=== PATIENT | female | born 1975 | race Asian ===

== ENCOUNTER 2017-07-13 01:10 | Inpatient (IN) | payer BC ==
[~2017-07-13] VITALS: Ht 175.3 cm; Wt 107.5 kg
[2017-07-13] MEDS ORDERED: ASPIRIN 81 MG TAB.CHEW ONE (01:23)
--- NOTE | 2017-07-13 01:51 | EKG ---
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
[2017-07-13 01:56] LABS: BASO # 0.1 x10^3/uL (0.0-0.2); BASO % 1 % (0-3); EOS # 0.6 x10^3/uL (0.0-0.7); EOS % 9 % (0-3); HEMATOCRIT 30.9 % (36.0-47.0); HEMOGLOBIN 9.9 g/dL (12.0-15.5); LYMPH % 30 % (24-48); MEAN CORPUSCULAR HEMOGLOBIN 21 pg (25-35); MEAN CORPUSCULAR HGB CONC 32 g/dL (31-37); MEAN CORPUSCULAR VOLUME 66 fL (79-100); MONO # 0.4 x10^3/uL (0.0-1.1); MONO % 6 % (0-9); NEUT # 3.7 x10^3uL (1.8-7.7); NEUT % 54 % (31-73); PLATELET COUNT 322 x10^3/uL (140-400); RED BLOOD COUNT 4.67 x10^6/uL (3.50-5.40); RED CELL DISTRIBUTION WIDTH 18.1 % (11.5-14.5); WHITE BLOOD COUNT 6.8 x10^3/uL (4.0-11.0)
[2017-07-13] MEDS ORDERED: ASPIRIN 81 MG TAB.CHEW PO ONE (02:00)
[2017-07-13] MEDS: NITROGLYCERIN OINT 1 GM PACKET. TP ONE (02:00)
[2017-07-13] MEDS ORDERED: IV RINGERS SOLUTION,LACTATED 1,000 ML IV SCH (02:00)
--- NOTE | 2017-07-13 02:05 | ED.ADGEN ---
Past History Past Medical History: Anemia, Hypertension, Other Smoking: Cigarettes Adult General Chief Complaint Chief Complaint ".. I ve been having some chest pain.. and this Lt. arm pain.. it been off and on... but it been constant tonight... .." HPI HPI Patient is a 42 year old female who presents with above hx of chest pain and Lt. shoulder arm pain. Pt. reports reddy been constant tonight and rates as . Pt. does have hx of HTN, and tobacco abuse. Pt. family hx + for HTN, DM and CAD starting at her age. Pt. denies any DVT or any cardiac hx. Pt. describes the discomfort as dull aching. No history of trauma. No history of travel. No history immunosuppression or specific ill contacts. Review of Systems Review of Systems Constitutional: Denies fever or chills [] Eyes: Denies change in visual acuity, redness, or eye pain [] HENT: Denies nasal congestion or sore throat [] Respiratory: Denies cough or shortness of breath [] Cardiovascular: No additional information not addressed in HPI [] GI: Denies abdominal pain, nausea, vomiting, bloody stools or diarrhea [] : Denies dysuria or hematuria [] Musculoskeletal: Denies back pain or joint pain [] Integument: Denies rash or skin lesions [] Neurologic: Denies headache, focal weakness or sensory changes [] Endocrine: Denies polyuria or polydipsia [] All other systems were reviewed and found to be within normal limits, except as documented in this note. Family History Family History Coronary Artery disease, cancer, hypertension, diabetes Current Medications Current Medications Current Medications Medications (Trade) Dose Ordered Sig/Aliyah Start Time Stop Time Status Last Admin Dose Admin Aspirin (Children'S Aspirin) 324 mg 1X ONCE 07/13/17 02:00 07/13/17 02:01 DC 07/13/17 01:40 324 MG Lactated Ringer's 1,000 ml @ 1,000 mls/hr Q1H 07/13/17 02:00 07/13/17 02:59 DC 07/13/17 03:30 1,000 MLS/HR Nitroglycerin (Nitro-Bid Oint) 1 inch 1X ONCE 07/13/17 02:00 07/13/17 02:01 DC See nursing for home meds Allergies Allergies Allergies Coded Allergies Type Severity Reaction Last Updated Verified No Known Drug Allergies 05/03/15 No Physical Exam Physical Exam Constitutional: Moderately acute distress, non-toxic appearance. [] HENT: Normocephalic, atraumatic, bilateral external ears normal, oropharynx moist, no oral exudates, nose normal. [] Eyes: PERRLA, EOMI, conjunctiva normal, no discharge. [] Neck: Normal range of motion, no tenderness, supple, no stridor. [] Cardiovascular: Bradycardia Heart rate regular rhythm, no murmur [] Lungs & Thorax: Bilateral breath sounds equal at apexes with scattered wheezes on auscultation [] Abdomen: Bowel sounds normal, soft, no tenderness, no masses, no pulsatile masses. [] Obese. Old surgery scar. Skin: Warm, dry, no erythema, no rash. [] Back: No tenderness, no CVA tenderness. [] Extremities: No tenderness, no cyanosis, no clubbing, ROM intact, ankle edema. [ ] No cording appreciated Neurologic: Alert and oriented X 3, normal motor function, normal sensory function, no focal deficits noted. [] Psychologic: Affect anxious, judgement normal, mood normal. [] Current Patient Data Vital Signs Vital Signs Date Time Temp Pulse Resp B/P (MAP) Pulse Ox O2 Delivery O2 Flow Rate FiO2 07/13/17 02:00 57 118/44 Lab Results Laboratory Tests Test 07/13/17 01:32 White Blood Count 6.8 x10^3/uL (4.0-11.0) Red Blood Count 4.67 x10^6/uL (3.50-5.40) Hemoglobin 9.9 g/dL (12.0-15.5) L Hematocrit 30.9 % (36.0-47.0) L Mean Corpuscular Volume 66 fL (79-100) L Mean Corpuscular Hemoglobin 21 pg (25-35) L Mean Corpuscular Hemoglobin Concent 32 g/dL (31-37) Red Cell Distribution Width 18.1 % (11.5-14.5) H Platelet Count 322 x10^3/uL (140-400) Neutrophils (%) (Auto) 54 % (31-73) Lymphocytes (%) (Auto) 30 % (24-48) Monocytes (%) (Auto) 6 % (0-9) Eosinophils (%) (Auto) 9 % (0-3) H Basophils (%) (Auto) 1 % (0-3) Neutrophils # (Auto) 3.7 x10^3uL (1.8-7.7) Lymphocytes # (Auto) 2.0 x10^3/uL (1.0-4.8) Monocytes # (Auto) 0.4 x10^3/uL (0.0-1.1) Eosinophils # (Auto) 0.6 x10^3/uL (0.0-0.7) Basophils # (Auto) 0.1 x10^3/uL (0.0-0.2) Platelet Estimate Adequate (ADEQUATE) Hypochromasia Slight Anisocytosis Slight Microcytosis Mod Prothrombin Time 9.9 SEC (9.4-11.4) Prothrombin Time INR 1.0 (0.9-1.1) PTT 26 SEC (23-33) D-Dimer (Shruthi) 0.64 mg/L (0.00-0.50) H Sodium Level 139 mmol/L (136-145) Potassium Level 3.5 mmol/L (3.5-5.1) Chloride Level 104 mmol/L (98-107) Carbon Dioxide Level 24 mmol/L (21-32) Anion Gap 11 (6-14) Blood Urea Nitrogen 14 mg/dL (7-20) Creatinine 0.8 mg/dL (0.6-1.0) Estimated GFR (Cockcroft-Gault) 79.0 Glucose Level 157 mg/dL (70-99) H Calcium Level 8.0 mg/dL (8.5-10.1) L Magnesium Level 1.7 mg/dL (1.8-2.4) L Total Bilirubin 0.2 mg/dL (0.2-1.0) Direct Bilirubin < 0.1 mg/dL (0.0-0.2) Aspartate Amino Transferase (AST) 12 U/L (15-37) L Alanine Aminotransferase (ALT) 17 U/L (14-59) Alkaline Phosphatase 69 U/L (46-116) Creatine Kinase 125 U/L (26-192) Creatine Kinase MB (Mass) 0.8 ng/mL (0.0-3.6) Creatine Kinase MB Relative Index 0.6 % (0-4) Troponin I Quantitative < 0.017 ng/mL (0-0.055) IO-Dwn-D-Type Natriuretic Peptide 115 pg/mL (0-124) Total Protein 6.6 g/dL (6.4-8.2) Albumin 3.0 g/dL (3.4-5.0) L Lipase 229 U/L (73-393) EKG EKG My interpretation EKG shows a sinus bradycardia 57 bpm. There are some nonspecific anterior septal changes. But no findings acute STEMI with contralateral changes. Borderline QT interval[] Radiology/Procedures Radiology/Procedures I interpretation of chest x-ray shows[] no acute cardiopulmonary findings. Course & Med Decision Making Course & Med Decision Making Pertinent Labs and Imaging studies reviewed. (See chart for details) Patient be admitted to Dr. Smallwood. Consult to cardiology. Further evaluation and treatment for her hypertension and chest pain. WA rule out. Pt. rates her pain at time of admit as 0 to 1 /10. [] Final Impression Final Impression 1. Chest Pain 2. HTN 3. Bradycardia 4. Anemia-Microcytic Hypochromic 5. DM 6. Hypomagnesium 7. Malnutrition- Alb. 3.0 Dragon Disclaimer Dragon Disclaimer This electronic medical record was generated, in whole or in part, using a voice recognition dictation system. ALEX VARGAS MD July 13, 2017 02:05
[2017-07-13 02:15] LABS: ALK PHOS 69 U/L (46-116); ALT (SGPT) 17 U/L (14-59); ANION GAP 11 (6-14); BLOOD UREA NITROGEN 14 mg/dL (7-20); CARBON DIOXIDE 24 mmol/L (21-32); CHLORIDE 104 mmol/L (98-107); CREATININE 0.8 mg/dL (0.6-1.0); LIPASE 229 U/L (73-393); MAGNESIUM 1.7 mg/dL (1.8-2.4); POTASSIUM 3.5 mmol/L (3.5-5.1); SODIUM 139 mmol/L (136-145); TOTAL BILIRUBIN 0.2 mg/dL (0.2-1.0); TOTAL PROTEIN 6.6 g/dL (6.4-8.2)
[2017-07-13 02:20] LABS: ANISOCYTOSIS SLIGHT; HYPOCHROMIA SLIGHT; MICROCYTOSIS MOD; PLT ESTIMATE ADEQUATE (ADEQUATE)
[2017-07-13 02:29] LABS: AST (SGOT) 12 U/L (15-37)
[2017-07-13 02:33] LABS: DIRECT BILIRUBIN < 0.1 mg/dL (0.0-0.2)
[2017-07-13 02:34] LABS: GLUCOSE 157 mg/dL (70-99)
[2017-07-13] MEDS ORDERED: ANTI-COAG MONITOR BY PHARMACY. MC PRN (03:30)
[2017-07-13] MEDS ORDERED: MAGNESIUM SULFATE 2GM 50 ML IV ONE (03:30)
[2017-07-13] MEDS ORDERED: ENOXAPARIN ** NOTE DOSE ** SYRINGE SQ ONE (03:30)
[2017-07-13 04:00] VITALS: BP 133/84
[2017-07-13] MEDS ORDERED: NICO1PAT21 TD (05:48)
[2017-07-13 06:10] VITALS: BP 144/90
[2017-07-13 06:46] LABS: BARBITURATES NEG (NEG); BENZODIAZEPINES NEG (NEG); CANNABINOIDS NEG (NEG); COCAINE NEG (NEG); METHADONE NEG (NEG); OPIATES NEG (NEG); PHENCYCLIDINE NEG (NEG)
[2017-07-13 06:48] LABS: AMPHETAMINE/METHAMPHETAMINE NEG (NEG)
[2017-07-13 06:58] LABS: BACTERIA,URINE MANY /HPF (0-FEW); BILIRUBIN,URINE NEG (NEG); CLARITY,URINE HAZY; COLOR,URINE YELLOW; GLUCOSE,URINE NEG (NEG); NITRITE,URINE NEG (NEG); RBC,URINE OCC /HPF (0-2); UROBILINOGEN,URINE 0.2 mg/dL (0.2 mg/dL)
[2017-07-13 06:59] LABS: SQUAMOUS EPITHELIAL CELL,UR MANY /LPF
--- NOTE | 2017-07-13 07:51 | RAD ---
Chest, 2 views, 07/13/2017: HISTORY: Chest pain Comparison is made to a study from 05/03/2015. The heart size and pulmonary vascularity are normal. No pulmonary infiltrate is seen. There is no evidence of pleural fluid. IMPRESSION: No acute cardiopulmonary abnormality is detected. Electronically signed by: Jose Alfredo Jackson MD (07/13/2017 7:47 AM) [facility]
[2017-07-13] MEDS ORDERED: ENOXAPARIN ** NOTE DOSE ** SYRINGE SQ SCH (09:00)
[2017-07-13] MEDS ORDERED: NITROGLYCERIN OINT 1 GM PACKET. TP SCH (09:00)
[2017-07-13] MEDS ORDERED: NICOTINE 21MG PATCH. TD SCH (09:00)
[2017-07-13] MEDS ORDERED: ASPIRIN 81 MG TAB.CHEW PO SCH (09:00)
[2017-07-13] MEDS ORDERED: MAGNESIUM CHLORIDE ER 64 MG TABLET.ER PO SCH (09:00)
--- NOTE | 2017-07-13 09:14 | PDOC2 ---
CONSULT Date of Admission DATE: 07/13/17 TIME: 09:11 Reason for Consult: chest pain Problem List Problems Medical Problems: (1) Anemia Status: Acute (2) Chest pain Status: Acute (3) Diabetes Status: Acute (4) Hypomagnesemia Status: Acute History of Present Illness Ms Ruiz is a 42 year old female who presents with complaints of chest pain and left arm pain. She reports pain that was off and on all day yesterday and achiness in quality. She reports radiation to her left arm with a shooting sensation and numbness and tingling. She denies any significant increase with exertion but does report that the discomfort improves with laying down. She denies any associated symptoms such as dyspnea, diaphoresis or nausea. She reports as the day progressed the discomfort got worse so she presented for evaluation. She denies any prior history. She denies any congestive symptoms, edema, palpitations, lightheadedness or syncope. She reports being very active though she does no regular exercise. She reports being able to climb a flight of stairs without problems. Pulmonary: Asthma GI: GERD Heme/Onc: Anemia NOS Past Surgical History: Tubal Ligation Family History: Cancer, Diabetes, Hypertension Social History + smoker, no significant ETOH, no illicit drugs Current Medications Current Medications Aspirin (Children'S Aspirin) 81 mg STK-MED ONCE .ROUTE ; Start 07/13/17 at 01:23 ; Stop 07/13/17 at 01:24; Status DC Aspirin (Children'S Aspirin) 324 mg 1X ONCE PO Last administered on 07/13/17at 01:40; Start 07/13/17 at 02:00; Stop 07/13/17 at 02:01; Status DC Lactated Ringer's 1,000 ml @ 1,000 mls/hr Q1H IV Last administered on at 03:30; Start 07/13/17 at 02:00; Stop 07/13/17 at 02:59; Status DC Nitroglycerin (Nitro-Bid Oint) 1 inch 1X ONCE TP ; Start 07/13/17 at 02:00; Stop 07/13/17 at 02:01; Status DC Enoxaparin Sodium (Lovenox 100mg Syringe) 100 mg 1X ONCE SQ Last administered on 07/13/17at 03:30; Start 07/13/17 at 03:30; Stop 07/13/17 at 03:31; Status DC Aspirin (Children'S Aspirin) 81 mg DAILYWBKFT PO ; Start 07/14/17 at 08:00; Stop 07/14/17 at 08:00; Status DC Nitroglycerin (Nitro-Bid Oint) 1 inch TID TP Last administered on 07/13/17at 09: 01; Start 07/13/17 at 09:00 Enoxaparin Sodium (Lovenox 100mg Syringe) 100 mg Q12HR SQ ; Start 07/13/17 at 09 :00; Stop 07/13/17 at 09:00; Status DC Magnesium Sulfate 50 ml @ 25 mls/hr 1X ONCE IV Last administered on 07/13/17at 04:49; Start 07/13/17 at 03:30; Stop 07/13/17 at 05:30; Status DC Info (Anti-Coagulation Monitoring By Pharmacy) 1 each PRN DAILY PRN MC SEE COMMENTS; Start 07/13/17 at 03:30 Nicotine (Nicoderm Cq 21mg) 1 patch DAILY TD Last administered on 07/13/17at 09: 01; Start 07/13/17 at 09:00 Heparin Sodium (Porcine) (Heparin Sq) 5,000 unit Q8HRS SQ ; Start 07/13/17 at 14 :00 Magnesium Chloride (Mag Delay) 64 mg DAILY PO Last administered on 07/13/17at 09 :00; Start 07/13/17 at 09:00 Aspirin (Children'S Aspirin) 81 mg DAILYWBKFT PO Last administered on at 09:10; Start 07/13/17 at 09:00; Status UNV Active Scripts Active Reported NICODERM CQ 21mg (Nicotine) 1 Each Patch.td24 1 Patch TD DAILY LAST DOSE GIVEN: DATE: TIME: NEXT DOSE DUE: DATE: TIME: Allergies: Coded Allergies: No Known Drug Allergies (Unverified , 05/03/15) Review of System as per HPI or negative General: Alert, Oriented X3, Cooperative, No acute distress HEENT: Atraumatic, EOMI, Mucous membr. moist/pink Lungs: Clear to auscultation Heart: Regular rate, Normal S1, Normal S2 Abdomen: Normal bowel sounds, Soft, No tenderness Extremities: No cyanosis, No edema, Normal pulses Neuro: Normal speech Psych/Mental Status: Mental status NL, Mood NL VITALS Vital Signs Date Time Temp Pulse Resp B/P (MAP) Pulse Ox O2 Delivery O2 Flow Rate FiO2 07/13/17 09:01 64 144/90 07/13/17 06:10 98.5 20 98 Room Air Labs Laboratory Tests Test 07/13/17 01:32 07/13/17 06:15 07/13/17 07:25 White Blood Count 6.8 x10^3/uL (4.0-11.0) Red Blood Count 4.67 x10^6/uL (3.50-5.40) Hemoglobin 9.9 g/dL (12.0-15.5) Hematocrit 30.9 % (36.0-47.0) Mean Corpuscular Volume 66 fL (79-100) Mean Corpuscular Hemoglobin 21 pg (25-35) Mean Corpuscular Hemoglobin Concent 32 g/dL (31-37) Red Cell Distribution Width 18.1 % (11.5-14.5) Platelet Count 322 x10^3/uL (140-400) Neutrophils (%) (Auto) 54 % (31-73) Lymphocytes (%) (Auto) 30 % (24-48) Monocytes (%) (Auto) 6 % (0-9) Eosinophils (%) (Auto) 9 % (0-3) Basophils (%) (Auto) 1 % (0-3) Neutrophils # (Auto) 3.7 x10^3uL (1.8-7.7) Lymphocytes # (Auto) 2.0 x10^3/uL (1.0-4.8) Monocytes # (Auto) 0.4 x10^3/uL (0.0-1.1) Eosinophils # (Auto) 0.6 x10^3/uL (0.0-0.7) Basophils # (Auto) 0.1 x10^3/uL (0.0-0.2) Platelet Estimate Adequate (ADEQUATE) Hypochromasia Slight Anisocytosis Slight Microcytosis Mod Prothrombin Time 9.9 SEC (9.4-11.4) Prothromb Time International Ratio 1.0 (0.9-1.1) Activated Partial Thromboplast Time 26 SEC (23-33) D-Dimer (Shruthi) 0.64 mg/L (0.00-0.50) Sodium Level 139 mmol/L (136-145) Potassium Level 3.5 mmol/L (3.5-5.1) Chloride Level 104 mmol/L (98-107) Carbon Dioxide Level 24 mmol/L (21-32) Anion Gap 11 (6-14) Blood Urea Nitrogen 14 mg/dL (7-20) Creatinine 0.8 mg/dL (0.6-1.0) Estimated GFR (Cockcroft-Gault) 79.0 Glucose Level 157 mg/dL (70-99) Calcium Level 8.0 mg/dL (8.5-10.1) Magnesium Level 1.7 mg/dL (1.8-2.4) Total Bilirubin 0.2 mg/dL (0.2-1.0) Direct Bilirubin < 0.1 mg/dL (0.0-0.2) Aspartate Amino Transf (AST/SGOT) 12 U/L (15-37) Alanine Aminotransferase (ALT/SGPT) 17 U/L (14-59) Alkaline Phosphatase 69 U/L (46-116) Creatine Kinase 125 U/L (26-192) Creatine Kinase MB (Mass) 0.8 ng/mL (0.0-3.6) Creatine Kinase MB Relative Index 0.6 % (0-4) Troponin I Quantitative < 0.017 ng/mL (0-0.055) < 0.017 ng/mL (0-0.055) WV-Fga-B-Type Natriuretic Peptide 115 pg/mL (0-124) Total Protein 6.6 g/dL (6.4-8.2) Albumin 3.0 g/dL (3.4-5.0) Lipase 229 U/L (73-393) Urine Collection Type Unknown Urine Color Yellow Urine Clarity Hazy Urine pH 6.0 Urine Specific [place] 1.025 Urine Protein Neg (NEG-TRACE) Urine Glucose (UA) Neg mg/dL (NEG) Urine Ketones (Stick) Neg mg/dL (NEG) Urine Blood Neg (NEG) Urine Nitrite Neg (NEG) Urine Bilirubin Neg (NEG) Urine Urobilinogen Dipstick 0.2 mg/dL (0.2 mg/dL) Urine Leukocyte Esterase Trace (NEG) Urine RBC Occ /HPF (0-2) Urine WBC 1-4 /HPF (0-4) Urine Squamous Epithelial Cells Many /LPF Urine Bacteria Many /HPF (0-FEW) Urine Opiates Screen Neg (NEG) Urine Methadone Screen Neg (NEG) Urine Barbiturates Neg (NEG) Urine Phencyclidine Screen Neg (NEG) Urine Amphetamine/Methamphetamine Neg (NEG) Urine Benzodiazepines Screen Neg (NEG) Urine Cocaine Screen Neg (NEG) Urine Cannabinoids Screen Neg (NEG) Urine Ethyl Alcohol Neg (NEG) Images EKG - sinus rhythm, non specific abn, no acute ischemic changes CXR - IMPRESSION: No acute cardiopulmonary abnormality is detected. Assessment/Plan 1. Chest pain with mixed features, improved with nitrates. CE negative x 2, non specific EKG changes. Suggest last set CE and check echo and if WNL, outpatient stress testing. 2. Mild hypertension - no prior history. Continue to monitor and add Rx if pressure remains >130/80 3. unk lipid status - lipids pending 4. asthma -well controlled 5. tobaccoism - stopped smoking 30 days, using nicotine patch. TASH JI APRN July 13, 2017 09:14
[2017-07-13] MEDS ORDERED: IOHEXOL 300 MG/ML 75 ML VIAL. IV ONE (09:30)
[2017-07-13] MEDS ORDERED: MAGNESIUM OXIDE 400 MG TABLET PO ONE (10:00)
[2017-07-13 11:12] VITALS: BP 120/74
--- NOTE | 2017-07-13 11:44 | CARD ---
MR#: [id number] Date of Study: 07/13/2017 Ordering Physician: TASH JI, Referring Physician: LURDES ARREAGA Tech: Shannon Lee PRASHANTH APPROVED REPORT EXAM: Two-dimensional and M-mode echocardiogram with Doppler and color Doppler. Other Information Quality : Good INDICATION Chest Pain 2D DIMENSIONS RVDd2.5 (2.9-3.5cm)Left Atrium(2D)4.2 (1.6-4.0cm) IVSd1.3 (0.7-1.1cm)Aortic Root(2D)3.1 (2.0-3.7cm) LVDd5.3 (3.9-5.9cm)LVOT Diameter2.1 (1.8-2.4cm) PWd1.1 (0.7-1.1cm)LVDs3.9 (2.5-4.0cm) FS (%) 27.5 %SV72.2 ml LVEF(%)53.0 (>50%) Aortic Valve AoV Peak Preston.163.2cm/sAoV VTI38.7cm AO Peak GR.10.7mmHgLVOT Peak [place].95.0cm/s LVOT VTI 23.91cmAO Mean GR.6mmHg MARTIN (VMAX)1.92dn8LIC (VTI)2.08cm2 Mitral Valve MV E Aednlkdw48.9cm/sMV DECEL HZBB104li MV A Rfhxglkh16.2cm/sMV GVZ39gu E/A Ratio1.4MVA (PHT)3.64cm2 Tricuspid Valve TR P. Dqyheryf092uq/sRAP GOQSEJDC1rsYh TR Peak Gr.12ujFxMIHQ13dmQg Pulmonary Vein S1 Dtqbvxgv53.7cm/sD2 Mwteeqpx30.5cm/s LEFT VENTRICLE The left ventricle is normal size. There is normal left ventricular wall thickness. Left ventricle ej ection fraction is low normal. The Ejection Fraction is 50-55%. There is normal LV segmental wall mot ion. The left ventricular diastolic function and filling is normal for age. RIGHT VENTRICLE The right ventricle is normal size. The right ventricular systolic function is normal. ATRIA The left atrium is mildly dilated. The right atrium size is normal. The interatrial septum is intact with no evidence for an atrial septal defect or patent foramen ovale as noted on 2-D or Doppler imagi ng. AORTIC VALVE The aortic valve is probably tricuspid. Doppler and Color Flow revealed no significant aortic regurgi tation. There is no significant aortic valvular stenosis. MITRAL VALVE The mitral valve is normal in structure and function. There is no evidence of mitral valve prolapse. There is no mitral valve stenosis. Doppler and Color-flow revealed trace mitral regurgitation. TRICUSPID VALVE The tricuspid valve is normal in structure and function. Doppler and Color Flow revealed trace to mil d tricuspid regurgitation. The PA pressure was estimated at 25 mmHg. There is no tricuspid valve sten osis. PULMONIC VALVE The pulmonic valve is not well visualized. Doppler and Color Flow revealed trace pulmonic valvular re gurgitation. There is no pulmonic valvular stenosis. GREAT VESSELS The aortic root is normal in size. The ascending aorta is normal in size. The IVC is normal in size a nd collapses >50% with inspiration. PERICARDIAL EFFUSION There is no evidence of significant pericardial effusion. Critical Notification Critical Value: No <Conclusion> Left ventricle ejection fraction is low normal. The Ejection Fraction is 50-55%. There is normal LV segmental wall motion. Doppler and Color Flow revealed trace to mild tricuspid regurgitation. The PA pressure was estimated at 25 mmHg. Signed by : Leon Miller, Electronically Approved : 07/13/2017 11:43:12
--- NOTE | 2017-07-13 12:30 | HP ---
ADMIT DATE: 07/13/2017 HISTORY OF PRESENT ILLNESS: A 42-year-old female, usual state of health yesterday when she began to have extreme pain in her left arm radiating down her left arm, left shoulder and up into the neck. The patient does have some risk factors of family history of hypertension, diabetes, coronary artery disease as well as the fact that she smokes and is mildly overweight. The patient otherwise was admitted to the hospital for further evaluation of her chest pain, rule out HI protocol. PAST MEDICAL HISTORY: Hypertension, tubal ligation, anemia, and influenza. VACCINE: Up-to-date. FAMILY HISTORY: Positive for diabetes, hypertension and coronary artery disease. ALLERGIES: No known drug allergies. HOME MEDICATIONS: Just Nicoderm patch. SOCIAL HISTORY: Socially has about a 90-phlg-uziv history of smoking, trying to quit smoking. Denies any tobacco use or drug use. REVIEW OF SYSTEMS: Positive for the severe pain and swelling to the left arm; however, she denies shortness of breath. She denies abdominal pain, denies nausea, vomiting, diaphoresis, and neurologically stable. No abnormalities noted there. PHYSICAL EXAMINATION: GENERAL: This is a [facility], in no apparent distress. VITAL SIGNS: Blood pressure 120/40, respiratory rate 20, pulse around 55, afebrile, 99% oxygen saturation. HEENT: The patient's head was atraumatic, normocephalic. Eyes: PERRLA without jaundice. The mouth and throat were normal. NECK: Supple. LUNGS: Clear except for crackles in the bases. CARDIOVASCULAR: Regular sinus rhythm, S1, S2, without murmur, rub, thrill, or extra heart sounds. ABDOMEN: Soft, nontender, no rebound or guarding. Positive bowel sounds. Hepatosplenomegaly noted. EXTREMITIES: No clubbing, no cyanosis, no edema except for left arm, which is swollen and tender. Otherwise, the patient was able to move her head without any shooting pain. LABORATORY DATA: Positive D-dimer. Cardiac enzymes are negative. Hemoglobin is low. IMPRESSION AND PLAN: Impression is therefore chest pain, microcytic anemia, left arm swelling. We will get a venous Doppler of the left arm, CTA of the chest, make further evaluation once those have been done. She is on heparin 3 times a day for anticoagulation and also we will reevaluate her hemoglobin abnormality as well. In any case, the patient will be monitored, Cardiology to see her and make further evaluation once these other tests have been performed and returned. LURDES ARREAGA MD DR: TRISTAN/kareem JOB#: [id number] / [id number]
[2017-07-13] MEDS ORDERED: HEPARIN PF for SUB-Q USE 5,000 UNIT/0.5 ML VIAL. SQ SCH (14:00)
--- NOTE | 2017-07-13 15:20 | RAD ---
Chest CTA History: Elevated d-dimer, shortness of breath starting yesterday, tingling in the left hand Technique: After bolus of intravenous contrast, CT imaging was performed of the chest. Multiplanar reconstruction images to include MIP reconstruction images are submitted. Exposure: One or more of the following individualized dose reduction techniques were utilized for this examination: 1. Automated exposure control 2. Adjustment of the mA and/or kV according to patient size 3. Use of iterative reconstruction technique. Comparison: None Findings: [ ] No pulmonary embolism is identified. Thoracic aortic caliber is within normal limits, no intraluminal flap. There are some axillary nodes bilaterally, largest about 1.2 cm short axis dimension on the right upper limits of normal. No significantly enlarged mediastinal or hilar nodes are identified. There is no pleural or pericardial effusion, pneumothorax, lobar infiltrate. Major airways are patent. Thoracic vertebral body stature and AP alignment are maintained. There is a 1 cm probable cyst of the left lateral lobe of the liver. Impression: 1. No pulmonary embolism is identified. There is no infiltrate or pleural fluid. Electronically signed by: Sebastian Uribe MD (07/13/2017 3:16 PM) [id number]
[2017-07-13] MEDS ORDERED: ASPI-630 PO (16:11)
[2017-07-13] MEDS ORDERED: Magnesium Chloride Er PO (16:11)
[2017-07-14 03:12] LABS: HEMOGLOBIN A1C 5.6 % (4.8-5.6)
[2017-07-14] MEDS ORDERED: PANTOPRAZOLE 40 MG TABLET. PO SCH (07:30)
[2017-07-14] MEDS ORDERED: ASPIRIN 81 MG TAB.CHEW PO SCH (08:00)
--- NOTE | 2017-07-21 19:04 | DS ---
DATE OF DISCHARGE: 07/13/2017 HOSPITAL COURSE: A 42-year-old female came in with chest pain. She came in through the Emergency Room with chest pain. She has strong family history for heart disease and diabetes. The patient noted she was having some extreme pain in her left arm radiating down her left arm, left shoulder and into her back, past medical history of hypertension, obesity and so forth. The patient was admitted for rule out MA protocol. She also had microcytic anemia. The patient made good progress during the rest of her hospitalization. She had an electrophoresis of her hemoglobin when she ran low. She was low on her hemoglobin A2, hemoglobin was low at 9.9 and 30. Iron was extremely low at 15, iron saturation was only 3. Hemoglobin A1c of 5.6. B12 was good at 561. TSH was normal. Cholesterol LDL 65, HDL 33 low. Triglycerides high at 328. LURDES ARREAGA MD DR: TRISTAN/kareem JOB#: [id number] / [id number]
== END 2017-07-13 16:30 | disposition home or self-care (01) | DRG 313 ==
LOC: ER 01:10 → 1 SOUTH 02:16
PROVIDERS: ADMIT Family Medicine; ATTEND Family Medicine
DX: R07.9 Chest pain, unspecified (principal); E46 Unspecified protein-calorie malnutrition; I25.10 Atherosclerotic heart disease of native coronary artery without angina pectoris; E83.42 Hypomagnesemia; D50.9 Iron deficiency anemia, unspecified; E11.9 Type 2 diabetes mellitus without complications; F17.210 Nicotine dependence, cigarettes, uncomplicated; I10 Essential (primary) hypertension; J45.909 Unspecified asthma, uncomplicated; K21.9 Gastro-esophageal reflux disease without esophagitis; Z82.49 Family history of ischemic heart disease and other diseases of the circulatory system; Z83.3 Family history of diabetes mellitus; Z68.35 Body mass index [BMI] 35.0-35.9, adult; Z98.51 Tubal ligation status
CPT/HCPCS: 36415; 71046; 71275; 80048; 80061; 80076; 80307; 81001; 82553; 82607; 83020; 83036; 83540; 83550; 83690; 83735; 83880; 84443; 84484; 85025; 85379; 85610; 85730; 87086; 93005; 93306; 96372; 99406; G0238; J1650; J3475; J7120; Q9967; 99285-25; G0479

== ENCOUNTER 2018-03-26 10:30 | Inpatient (IN) | payer BC ==
[~2018-03-26] VITALS: Ht 175.3 cm; Wt 65.5 kg
[~2018-03-26 10:30] MED LIST: ASPI-630 PO; Magnesium Chloride Er PO; NICO1PAT21 TD
[2018-03-26 11:41] VITALS: BP 148/83
[2018-03-26] MEDS ORDERED: ONDANSETRON ODT 4 MG TAB.RAPDIS PO PRN (11:45)
[2018-03-26] MEDS ORDERED: ASPIRIN 81 MG TAB.CHEW PO ONE (12:00)
[2018-03-26] MEDS ORDERED: ZOLPIDEM 5 MG TABLET. PO PRN (12:00)
[2018-03-26] MEDS ORDERED: clonazePAM 0.5 MG TABLET PO PRN (12:00)
[2018-03-26] MEDS ORDERED: IOHEXOL 240 MG/ML 50ML VIAL. PO ONE (12:15)
[2018-03-26] MEDS ORDERED: CONTRAST GIVEN MC PRN (12:30)
[2018-03-26] MEDS ORDERED: IOHEXOL 350 MG/ML 100 ML VIAL. IV ONE (13:45)
[2018-03-26] MEDS ORDERED: IOHEXOL 300 MG/ML 75 ML VIAL. IV ONE (13:45)
[2018-03-26] MEDS: IV NORMAL SALINE 1,000ML 1,000 ML IV SCH (13:49)
[2018-03-26 14:11] LABS: BASO % 1 % (0-3); EOS # 0.4 x10^3/uL (0.0-0.7); EOS % 6 % (0-3); HEMATOCRIT 34.9 % (36.0-47.0); HEMOGLOBIN 11.1 g/dL (12.0-15.5); LYMPH # 1.6 x10^3/uL (1.0-4.8); LYMPH % 22 % (24-48); MEAN CORPUSCULAR HEMOGLOBIN 23 pg (25-35); MEAN CORPUSCULAR HGB CONC 32 g/dL (31-37); MEAN CORPUSCULAR VOLUME 73 fL (79-100); MONO # 0.4 x10^3/uL (0.0-1.1); MONO % 6 % (0-9); NEUT % 67 % (31-73); PLATELET COUNT 313 x10^3/uL (140-400); RED BLOOD COUNT 4.76 x10^6/uL (3.50-5.40); RED CELL DISTRIBUTION WIDTH 14.9 % (11.5-14.5); WHITE BLOOD COUNT 7.5 x10^3/uL (4.0-11.0)
[2018-03-26 14:30] LABS: ALBUMIN 3.3 g/dL (3.4-5.0); ALBUMIN/GLOBULIN RATIO 0.9 (1.0-1.7); CALCIUM 8.4 mg/dL (8.5-10.1); CREATININE 0.7 mg/dL (0.6-1.0); GFR 92.2; POTASSIUM 3.8 mmol/L (3.5-5.1); TOTAL BILIRUBIN 0.6 mg/dL (0.2-1.0)
[2018-03-26 15:14] LABS: SEDIMENTATION RATE 19 (0-25)
[2018-03-26 15:25] VITALS: BP 128/67
--- NOTE | 2018-03-26 16:11 | RAD ---
CT angiography chest with contrast. CT abdomen and pelvis with contrast. COMPARISON: CT chest July 13, 2017. HISTORY: Chest pain. Left lower quadrant abdominal pain. Elevated d-dimer. PQRS statement: CT scans at this facility use dose reduction including either automated exposure control, iterative reconstructions, and /or weight based radiation dosing via mA and kV modification when appropriate to reduce radiation dose to as low as reasonably achievable. TECHNIQUE: Helical CT imaging of the chest, abdomen and pelvis with 100 mL Isovue-370 intravenous contrast with 3-D MIP reconstructions of the pulmonary arteries to assess for emboli. Chest findings: There is under opacification of the pulmonary arteries peripheral of the khoi limiting evaluation for lobar emboli. In light of this no central pulmonary artery emboli of the main or right or left pulmonary artery centralf of the khoi evident. Excellent contrast density within the thoracic aorta without evidence of dissection or aneurysm. Heart size normal. Esophagus unremarkable. No adenopathy. No pneumothorax, pulmonary opacities or pleural effusions. Bones are unremarkable. Chest impression: No acute process. No large central pulmonary artery emboli evident. No thoracic aortic aneurysm or dissection. See discussion above. Abdomen findings: 2 cm cyst left hepatic lobe. Adrenal glands, right kidney, spleen, gallbladder and pancreas are unremarkable. Subcentimeter hypodense lesion of the left renal midpole too small to characterize due to volume averaging this is indeterminate. No obstruction or inflammation GI tract. Appendix is negative. No abdominal fluid or adenopathy. Bones unremarkable. Pelvis findings: Prominent size of the uterus and hypodense fluid or endometrium centrally. Small cervical cyst. 3 cm hypodensity likely a dominant follicle or cyst right ovary. Left ovary, bladder, rectum and bones are unremarkable. No pelvic fluid or adenopathy. IMPRESSION: 1. No acute process in the abdomen. The appendix is negative. 2. Mild enlargement of the uterus, enlargement due to indistinct fibroids is a possibility. There is endometrial fluid or thickening present. 3 cm right ovarian cyst or follicle is present. These findings could be further characterized by pelvic sonography. Electronically signed by: Carl Roche MD (03/26/2018 4:06 PM) [facility] [place]
[2018-03-26] MEDS ORDERED: traMADol 50 MG TABLET PO PRN (18:45)
[2018-03-26 18:48] VITALS: BP 112/68
[2018-03-26] MEDS ORDERED: HYDROcodone/APAP 7.5/325MG 1 TAB TABLET PO PRN (19:00)
[2018-03-26] MEDS: ACETAMINOPHEN 500 MG TABLET PO PRN (19:23)
[2018-03-26] MEDS: FAMOTIDINE 20 MG TABLET PO SCH (20:23)
[2018-03-26 22:40] VITALS: BP 117/70
[2018-03-27 00:45] LABS: BACTERIA,URINE FEW /HPF (0-FEW); BILIRUBIN,URINE NEG (NEG); CLARITY,URINE HAZY; COLOR,URINE YELLOW; GLUCOSE,URINE NEG (NEG); NITRITE,URINE NEG (NEG); RBC,URINE 0 /HPF (0-2); SQUAMOUS EPITHELIAL CELL,UR MOD /LPF; UROBILINOGEN,URINE 1 mg/dL (0.2 mg/dL); WBC,URINE RARE /HPF (0-4)
[2018-03-27] MEDS: IV NORMAL SALINE 1,000ML 1,000 ML IV SCH (03:57)
[2018-03-27 05:39] VITALS: BP 113/74
[2018-03-27] MEDS: ACETAMINOPHEN 500 MG TABLET PO PRN ×2 (06:00→10:32)
[2018-03-27 07:31] LABS: BASO # 0.1 x10^3/uL (0.0-0.2); BASO % 1 % (0-3); EOS # 0.4 x10^3/uL (0.0-0.7); EOS % 7 % (0-3); HEMATOCRIT 34.4 % (36.0-47.0); HEMOGLOBIN 10.9 g/dL (12.0-15.5); LYMPH # 1.1 x10^3/uL (1.0-4.8); LYMPH % 20 % (24-48); MEAN CORPUSCULAR HEMOGLOBIN 23 pg (25-35); MEAN CORPUSCULAR HGB CONC 32 g/dL (31-37); MEAN CORPUSCULAR VOLUME 74 fL (79-100); MONO # 0.4 x10^3/uL (0.0-1.1); MONO % 7 % (0-9); NEUT # 3.6 x10^3uL (1.8-7.7); NEUT % 64 % (31-73); PLATELET COUNT 296 x10^3/uL (140-400); RED BLOOD COUNT 4.66 x10^6/uL (3.50-5.40); RED CELL DISTRIBUTION WIDTH 14.6 % (11.5-14.5); WHITE BLOOD COUNT 5.5 x10^3/uL (4.0-11.0)
[2018-03-27 07:44] LABS: CALCIUM 8.2 mg/dL (8.5-10.1); CREATININE 0.7 mg/dL (0.6-1.0); GFR 92.2; POTASSIUM 4.2 mmol/L (3.5-5.1)
[2018-03-27] MEDS ORDERED: ASPIRIN 81 MG TAB.CHEW PO SCH (08:00)
--- NOTE | 2018-03-27 08:33 | RAD ---
PQRS Compliance statement: One or more of the following individualized dose reduction techniques were utilized for this examination: 1. Automated exposure control. 2. Adjustment of the mA and/or kV according to patient size. 3. Use of iterative reconstruction technique. Indication:Left arm numbness TECHNIQUE: CT head without IV contrast COMPARISON: None FINDINGS: Motion artifact limiting optimal evaluation. No pathologic extra-axial or intra-axial fluid collection. The ventricles and basal cisterns are within normal limits. No apparent acute intracranial bleed. Visualized orbits within normal limits. No suspicious calvarial lesion. Visualized paranasal sinuses and mastoid air cells are clear. IMPRESSION: Motion artifact limiting optimal evaluation. No apparent acute intracranial bleed. If concern for acute ischemic stroke is high, please consider MRI brain. Indication:Left arm numbness TECHNIQUE: CT of the cervical spine without IV contrast with multiplanar reformats. COMPARISON:None FINDINGS: There is reversal of normal cervical lordosis. This could be due to muscle spasm or positioning. Atlantoaxial joint interval is preserved. No compression deformities. Facet joints are in normal anatomic alignment without significant facet arthropathy. No acute fractures. Noncontrast appearance of the visualized neck soft tissue is within normal limits. Clear lung apices. IMPRESSION: No significant evidence of degenerative disc disease or facet arthropathy. Electronically signed by: Cole Bueno DO (03/27/2018 8:29 AM) [facility]
[2018-03-27] MEDS ORDERED: MAGNESIUM CHLORIDE ER 64 MG TABLET.ER PO SCH (09:00)
[2018-03-27] MEDS ORDERED: NICOTINE 21MG PATCH. TD SCH (09:00)
[2018-03-27] MEDS: FAMOTIDINE 20 MG TABLET PO SCH (09:23)
[2018-03-27 10:34] VITALS: BP 149/74
--- NOTE | 2018-03-27 18:06 | DS ---
DATE OF DISCHARGE: 03/27/2018 HOSPITAL COURSE: The patient is a 42-year-old female, came in from the office with left chest pain radiating down the left arm and up into the neck and face. She also had numbness and tingling in that left arm. She was admitted to the hospital for further evaluation and treatment for rule out MD protocol. The patient had a CTA of the chest, abdomen and pelvis, basically was negative for any blood clot or aneurysm. The abdomen was basically unremarkable except for enlargement of the uterus consistent with possible fibroids. The patient because of this numbness down her left arm had a CT scan of the cervical spine, which showed negative findings there. CTA of the brain was unremarkable for rule out possibility of a TIA or stroke and will be scheduled as an outpatient for an MRI of the brain as well as Neurology consultations. The patient otherwise made excellent progress during the rest of her hospitalization. There were no complications. See MRAD. She should be on a heart healthy diet and I make further evaluation on her as indicated per those results. IMPRESSION: Chest pain, radiculopathy down the left arm with numbness, uterine fibroids. PLAN: As above. LURDES ARREAGA MD DR: TRISTAN/kareem JOB#: [id number] / [id number]
[2018-03-27 23:12] LABS: HEMOGLOBIN A1C 5.8 % (4.8-5.6)
--- NOTE | 2018-04-19 12:07 | EKG ---
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
== END 2018-03-27 14:26 | disposition home or self-care (01) | DRG 313 ==
LOC: 1 SOUTH 10:30
PROVIDERS: ADMIT Family Medicine; ATTEND Family Medicine
DX: R07.89 Other chest pain (principal); D25.9 Leiomyoma of uterus, unspecified; M54.10 Radiculopathy, site unspecified
CPT/HCPCS: 36415; 70450; 71275; 72125; 74177; 80048; 80053; 80061; 81001; 82550; 83036; 84484; 85025; 85379; 85651; 87086; 93005; Q0162; Q9966; Q9967; J7030

== ENCOUNTER → 2019-11-09 | Outpatient (CLI) | payer BC ==
[~2019-11-09] MED LIST changes: +ALBU2.5V8 IH
--- NOTE | 2019-11-09 13:56 | RAD ---
PQRS Compliance Statement: One or more of the following individualized dose reduction techniques were utilized for this examination: 1. Automated exposure control 2. Adjustment of the mA and/or kV according to patient size 3. Use of iterative reconstruction technique CT abdomen/pelvis without contrast 11/09/2019 1:30 PM INDICATION: Fever, diarrhea COMPARISON: CT abdomen/pelvis 04/05/2018 TECHNIQUE: Multiple axial CT images of the abdomen and pelvis were obtained without intravenous contrast. Coronal and sagittal reformats are provided. FINDINGS: There is a 10 mm solid noncalcified pulmonary nodule at the right lung base (series 2, image 1). Patchy nodular consolidative change at the left lung base is new and may represent pulmonary infiltrate in appropriate setting. Additional solid noncalcified pulmonary nodule identified in the right middle lobe measuring 7 mm (series 2, image 15). Heart size is within normal limits. Evaluation of solid abdominal viscera is limited by lack of venous contrast. Liver, spleen, bilateral adrenal glands, pancreas and gallbladder are normal in appearance. Abdominal aorta is normal in course and caliber. No pathologically enlarged lymph nodes are identified in abdomen and pelvis. There is no free fluid or free intraperitoneal air. Small and large bowel are normal in caliber. No bowel obstruction or inflammation is identified. Appendix is normal in appearance. Stomach is normal in appearance. Kidneys are symmetric in appearance. No hydronephrosis or suspicious renal mass. No calculi are identified in the kidneys, ureters or urinary bladder. Urinary bladder is within normal limits given degree of distention. Uterus is normal by CT. No suspicious adnexal mass is identified. Follicular changes are identified in the right adnexa. Suspect nabothian cysts within the cervix. No suspicious osseous abnormality is identified. IMPRESSION: 1. Nodular areas of consolidation identified at the lung bases, most prominent at the left lung base posteriorly. There is a 10 mm solid noncalcified pulmonary nodule in the right lower lobe. Findings most favor pulmonary infiltrate in the appropriate clinical setting. 3 month follow-up chest CT could be of benefit to ensure resolution. 2. No bowel obstruction or inflammation is identified. 3. Suspect nabothian cysts within the cervix. Follicular changes are identified in the right adnexa. Electronically signed by: Jenlele Collier MD (11/09/2019 1:53 PM) [facility]
== END | disposition home or self-care (01) ==
LOC: CT 13:15
PROVIDERS: ATTEND Family Medicine
DX: R91.1 Solitary pulmonary nodule (principal); R50.81 Fever presenting with conditions classified elsewhere; R19.7 Diarrhea, unspecified
CPT/HCPCS: 74176

== ENCOUNTER 2019-11-13 21:40 | Emergency (ER) | payer BC ==
[~2019-11-13] VITALS: Ht 175.3 cm; Wt 114.5 kg
[~2019-11-13 21:40] MED LIST changes: -ALBU2.5V8 IH
--- NOTE | 2019-11-13 22:38 | RAD ---
Exam: Chest one view INDICATION: Cough, Covid positive TECHNIQUE: Frontal view of the chest Comparisons: None FINDINGS: The cardiomediastinal silhouette and pulmonary vessels are within normal limits. Subtle rounded opacity at the right midlung. Remaining lungs are clear. No pleural effusion. IMPRESSION: Subtle rounded opacity at the right midlung may represent infectious process given history. Follow-up imaging posttreatment to ensure resolution is recommended. Electronically signed by: Wisam Frias MD (11/13/2019 10:35 PM) [id number]
--- NOTE | 2019-11-13 23:25 | PHYS DOC ---
Past History Past Medical History: No Pertinent History Past Surgical History: Tubal ligation Smoking: Cigarettes Alcohol Use: None Drug Use: Marijuana Adult General Chief Complaint Chief Complaint: SHORTNESS OF BREATH HPI HPI Patient is a 44 year old female who presents with complaint of shortness of breath and fatigue. The patient notes that 5 days ago she started having body aches, chills, fever, and fatigue. The patient underwent COVID-19 testing by her primary care physician and was found to be positive. Notes that she has been taking [id number] medications for treatment of her symptoms over the past few days. States however that since yesterday she has had worsening denisha rtness of breath with exertion. Denies cough. States that since her diagnosis she has completed a course of Levaquin, azithromycin, and Plaquenil that was prescribed to her by her primary care physician. She states despite taking these medications she does not feel better. Currently denies chest pain or unilateral weakness. Review of Systems Review of Systems Constitutional: Fever, fatigue [] Eyes: Denies change in visual acuity, redness, or eye pain [] HENT: Denies nasal congestion or sore throat [] Respiratory: Shortness of breath, denies cough [] Cardiovascular: Denies chest pain or edema [] GI: Denies abdominal pain, nausea, vomiting, bloody stools or diarrhea [] : Denies dysuria or hematuria [] Musculoskeletal: Myalgias, back pain, joint pain [] Integument: Denies rash or skin lesions [] Neurologic: Headache, denies focal weakness or sensory changes [] All other systems were reviewed and found to be within normal limits, except as documented in this note. Allergies Allergies Allergies Coded Allergies Type Severity Reaction Last Updated Verified No Known Drug Allergies 05/03/15 No Physical Exam Physical Exam Constitutional: Well developed, well nourished, vital signs stable, no acute distress. [] HENT: Normocephalic, atraumatic, bilateral external ears normal, oropharynx moist, no oral exudates, nose normal. [] Eyes: PERRLA, EOMI, conjunctiva normal, no discharge. [] Neck: Normal range of motion, no tenderness, supple, no stridor. [] Cardiovascular:Heart rate regular rhythm, no murmur [] Lungs & Thorax: Bilateral breath sounds clear to auscultation [] Abdomen: Bowel sounds normal, soft, no tenderness, no masses, no pulsatile masses. [] Skin: Warm, dry, no erythema, no rash. [] Back: No tenderness, no CVA tenderness. [] Extremities: No tenderness, no cyanosis, no clubbing, ROM intact, no edema. [] Neurologic: Alert and oriented X 3, normal motor function, normal sensory function, no focal deficits noted. [] Current Patient Data Vital Signs Vital Signs Date Time Temp Pulse Resp B/P (MAP) Pulse Ox O2 Delivery O2 Flow Rate FiO2 11/13/19 21:40 99.8 81 20 154/104 (121 97 Room Air Lab Results Not performed EKG EKG Not performed[] Radiology/Procedures Radiology/[place] [id number] IMAGING REPORT Signed PATIENT: MERRITT VILLATORO ACCOUNT: [id number] : 1975 LOCATION: ER AGE: 44 SEX: F EXAM STATUS: REG ER ORD. PHYSICIAN: MYLES GONZALEZ MD REASON: COUGH, COVID POSITIVE PROCEDURE: PORTABLE CHEST 1V Exam: Chest one view INDICATION: Cough, Covid positive TECHNIQUE: Frontal view of the chest Comparisons: None FINDINGS: The cardiomediastinal silhouette and pulmonary vessels are within normal limits. Subtle rounded opacity at the right midlung. Remaining lungs are clear. No pleural effusion. IMPRESSION: Subtle rounded opacity at the right midlung may represent infectious process given history. Follow-up imaging posttreatment to ensure resolution is recommended. Electronically signed by: Wisam Whitlock MD (11/13/2019 10:35 PM) [id number] DICTATED AND SIGNED BY: WISAM WHITLOCK MD DATE: 11/13/19 2235 CC: LURDES ARREAGA MD; MYLES GONZALEZ MD ~ [] Course & Med Decision Making Course & Med Decision Making Pertinent Labs and Imaging studies reviewed. (See chart for details) Patient's vital signs are stable and patient is in no acute distress at this time. Chest x-ray shows a subtle right middle lobe opacity but no other findings. This likely represents a small viral infiltrate. The patient's condition is stable at this time and patient is appropriate for discharge home. I advised the patient follow-up with her primary doctor in the next 1 to 2 days for reevaluation and return immediately to the emergency department for any worsening symptoms. Prescribed albuterol inhaler to help with improving work of breathing. Patient voiced understanding and agreement with treatment plan. IMyles MD, wore N 95 mask, eye protection, face shield, gown, and gloves during patient encounter. [] Dragon Disclaimer Dragon Disclaimer This electronic medical record was generated, in whole or in part, using a voice recognition dictation system. Departure Departure: Impression: Primary Impression: Dyspnea due to COVID-19 Disposition: HOME/RESIDENCE PRIOR TO ADM Condition: STABLE Referrals: LURDES ARREAGA MD (PCP) Patient Instructions: Viral Syndrome Additional Instructions: Follow-up with Dr. Arreaga in the next 1 to 2 days for reevaluation. Return to the emergency department for any worsening symptoms. Scripts Albuterol Sulfate (PROAIR HFA INHALER) 8.5 Gm Hfa.aer.ad 2 PUFF IH PRN Q4-6HRS PRN for wheezing for 21 Days, #1 INHALER 0 Refills Prov: MYLES GONZALEZ MD 11/13/19 Justification of Admission: Justification of Admission: Justification of Admission Dx: N/A MYLES GONZALEZ MD Nov 13, 2019 23:24
[2019-11-13 23:40] VITALS: BP 164/79
[2019-11-13] MEDS ORDERED: ALBU2.5V8 IH (23:41)
== END 2019-11-13 23:50 | disposition home or self-care (01) ==
LOC: ER 21:40
DX: U07.1 COVID-19 (principal); R06.02 Shortness of breath; R51 Headache; F17.210 Nicotine dependence, cigarettes, uncomplicated
CPT/HCPCS: 71045; 99283

== ENCOUNTER 2019-11-18 10:03 | Inpatient (IN) | payer BC ==
[~2019-11-18] VITALS: Ht 175.3 cm; Wt 113.9 kg
[~2019-11-18 10:03] MED LIST changes: +ALBU2.5V8 IH
--- NOTE | 2019-11-18 11:10 | RAD ---
EXAMINATION: CHEST AP ONLY CLINICAL HISTORY: Shortness of breath EXAM DATE/TIME: 11/18/2019 10:08 AM COMPARISON: 11/13/2019 FINDINGS: Lines, Tubes, and Devices: None. Cardiomediastinal Silhouette: Within normal limits. Lungs and Pleura: Previously noted opacity in the right midlung zone is not visualized on this exam. No evidence of focal airspace consolidation or pleural effusion. Pulmonary vasculature unremarkable. Bones and Soft Tissues: No acute osseous abnormality. IMPRESSION: No evidence of acute cardiopulmonary abnormality. Electronically signed by: Kris Man DO (11/18/2019 11:06 AM) [id number]
[2019-11-18 11:21] LABS: BASO % 1 % (0-3); EOS % 1 % (0-3); HEMATOCRIT 39.4 % (36.0-47.0); HEMOGLOBIN 12.3 g/dL (12.0-15.5); LYMPH % 17 % (24-48); MEAN CORPUSCULAR HEMOGLOBIN 22 pg (25-35); MEAN CORPUSCULAR HGB CONC 31 g/dL (31-37); MEAN CORPUSCULAR VOLUME 70 fL (79-100); MONO # 0.3 x10^3/uL (0.0-1.1); MONO % 6 % (0-9); NEUT # 4.6 x10^3uL (1.8-7.7); NEUT % 76 % (31-73); PLATELET COUNT 192 x10^3/uL (140-400); RED BLOOD COUNT 5.59 x10^6/uL (3.50-5.40); RED CELL DISTRIBUTION WIDTH 15.8 % (11.5-14.5)
[2019-11-18 11:23] LABS: CALCIUM 8.5 mg/dL (8.5-10.1); CREATININE 0.8 mg/dL (0.6-1.0); GFR 78.3; POTASSIUM 3.3 mmol/L (3.5-5.1)
[2019-11-18 11:36] LABS: ALBUMIN 3.1 g/dL (3.4-5.0); ALBUMIN/GLOBULIN RATIO 0.7 (1.0-1.7); C REACTIVE PROTEIN 21.7 mg/L (0-3.3); TOTAL BILIRUBIN 0.5 mg/dL (0.2-1.0); TOTAL PROTEIN 7.8 g/dL (6.4-8.2)
--- NOTE | 2019-11-18 11:46 | EKG ---
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
[2019-11-18 11:47] LABS: HYPOCHROMIA MOD; MICROCYTOSIS MOD; OVALOCYTES PRESENT; PLT ESTIMATE ADEQUATE (ADEQUATE); POIKILOCYTOSIS SLIGHT
--- NOTE | 2019-11-18 12:09 | PHYS DOC ---
Past History Past Medical History: No Pertinent History Past Surgical History: Tubal ligation Smoking: Cigarettes Alcohol Use: None Drug Use: Marijuana Adult General Chief Complaint Chief Complaint: SHORTNESS OF BREATH HPI HPI Patient is a 44-year-old female with known coronavirus who presents to the emergency room from clinic for increased shortness of breath. Patient has been ill for the last 2 weeks. Her shortness of breath has continued to increase. She cannot even sit up out of bed without having to catch her breath. She has a history of asthma but no other lung issues. She has been using an inhaler and steroids at home without relief. She is also been on a course of Levaquin. Review of Systems Review of Systems General: Reports body aches, fever, chills, sweats, fatigue Eyes: Denies drainage, blurred vision, eye redness HENT: Denies rhinorrhea, sore throat, earache Respiratory: Reports cough, shortness of breath, chest tightness Cardiac: Denies edema, palpitations, chest pain GI: Denies abdominal pain, Nausea, vomiting MSK: Denies back pain, neck pain Skin: Denies rash, jaundice Neuro: Denies headache, dizziness Psychiatric: Denies SI/HI Allergies Allergies Allergies Coded Allergies Type Severity Reaction Last Updated Verified No Known Drug Allergies 05/03/15 No Physical Exam Physical Exam General: Awake, alert, NAD. Well Nourished, well hydrated. Cooperative HEENT: Atraumatic, EOMI, PERRL, airway patent, moist oral mucosa Neck: Supple, trachea midline Respiratory: Normal crackles bilaterally, increased work of breathing, mild respiratory distress, tachypnea CV: RRR, no murmur, cap refill <2 GI: Soft, nondistended, nontender, no masses MSK: No obvious deformities Skin: Warm, dry, intact Neuro: A&O x3, speech NL, sensory and motor grossly intact, no focal deficits Psych: Normal affect, normal mood, not suicidal or homicidal Current Patient Data Vital Signs Vital Signs Date Time Temp Pulse Resp B/P (MAP) Pulse Ox O2 Delivery O2 Flow Rate FiO2 11/18/19 10:52 74 20 133/73 (93) 99 Room Air 11/18/19 10:14 98.2 Lab Results Laboratory Tests Test 11/18/19 10:51 11/18/19 11:12 White Blood Count 6.0 x10^3/uL (4.0-11.0) Red Blood Count 5.59 x10^6/uL (3.50-5.40) H Hemoglobin 12.3 g/dL (12.0-15.5) Hematocrit 39.4 % (36.0-47.0) Mean Corpuscular Volume 70 fL (79-100) L Mean Corpuscular Hemoglobin 22 pg (25-35) L Mean Corpuscular Hemoglobin Concent 31 g/dL (31-37) Red Cell Distribution Width 15.8 % (11.5-14.5) H Platelet Count 192 x10^3/uL (140-400) Neutrophils (%) (Auto) 76 % (31-73) H Lymphocytes (%) (Auto) 17 % (24-48) L Monocytes (%) (Auto) 6 % (0-9) Eosinophils (%) (Auto) 1 % (0-3) Basophils (%) (Auto) 1 % (0-3) Neutrophils # (Auto) 4.6 x10^3uL (1.8-7.7) Lymphocytes # (Auto) 1.0 x10^3/uL (1.0-4.8) Monocytes # (Auto) 0.3 x10^3/uL (0.0-1.1) Eosinophils # (Auto) 0.0 x10^3/uL (0.0-0.7) Basophils # (Auto) 0.0 x10^3/uL (0.0-0.2) Platelet Estimate Adequate (ADEQUATE) Large Platelets Occ Hypochromasia Mod Poikilocytosis Slight Microcytosis Mod Ovalocytes Present D-Dimer (Shruthi) 0.68 mg/L (0.00-0.50) H Sodium Level 139 mmol/L (136-145) Potassium Level 3.3 mmol/L (3.5-5.1) L Chloride Level 103 mmol/L (98-107) Carbon Dioxide Level 28 mmol/L (21-32) Anion Gap 8 (6-14) Blood Urea Nitrogen 12 mg/dL (7-20) Creatinine 0.8 mg/dL (0.6-1.0) Estimated GFR (Cockcroft-Gault) 78.3 BUN/Creatinine Ratio 15 (6-20) Glucose Level 96 mg/dL (70-99) Calcium Level 8.5 mg/dL (8.5-10.1) Total Bilirubin 0.5 mg/dL (0.2-1.0) Aspartate Amino Transferase (AST) 20 U/L (15-37) Alanine Aminotransferase (ALT) 23 U/L (14-59) Alkaline Phosphatase 76 U/L (46-116) Lactate Dehydrogenase 176 U/L (81-234) Creatine Kinase 37 U/L (26-192) Troponin I Quantitative 0.018 ng/mL (0-0.055) C-Reactive Protein 21.7 mg/L (0-3.3) H LC-Mhk-G-Type Natriuretic Peptide 13 pg/mL (0-124) Total Protein 7.8 g/dL (6.4-8.2) Albumin 3.1 g/dL (3.4-5.0) L Albumin/Globulin Ratio 0.7 (1.0-1.7) L POC Urine HCG, Qualitative hcg negative (Negative) EKG EKG [] Radiology/Procedures Radiology/Procedures [] Course & Med Decision Making Course & Med Decision Making Pertinent Labs and Imaging studies reviewed. (See chart for details) Patient is a 44-year-old female with known coronavirus who presents to the emergency room with increased work of breathing and shortness of breath. Patient does appear to be in distress. Given her worsening condition she will need to be admitted. Dragon Disclaimer Dragon Disclaimer This electronic medical record was generated, in whole or in part, using a voice recognition dictation system. Departure Departure: Impression: Primary Impression: Coronavirus infection Additional Impression: Shortness of breath Disposition: ADMITTED INPATIENT Condition: STABLE Referrals: LURDSE ARREAGA MD (PCP) Problem Qualifiers ALVERN BARRON MD Nov 18, 2019 12:09
[2019-11-18] MEDS ORDERED: ALBUTEROL SULFATE 8GM INHALER. INH PRN (13:30)
[2019-11-18 14:43] VITALS: BP 128/66
--- NOTE | 2019-11-18 14:58 | NUR ---
PT ORIENTED TO ROOM AND UNIT, BED LOW AND LOCKED, SIDE RAILS UP X 3, CALL LIGHT IN REACH. TELEL APPLIED AND WILL BE ON ENHANCED PRECAUTION. MD AWARE THAT PT HAD PRIOR POSITIVE COVID TEST. WILL CONTINUE TO ASSESS.
[2019-11-18] MEDS: ACETAMINOPHEN 325 MG TABLET PO PRN (16:28)
[2019-11-18] MEDS ORDERED: ELECTROLYTE (NON-ICU) PROTOCOL MC PRN ×2 (17:30→19:30)
[2019-11-18] MEDS ORDERED: ZOLPIDEM 5 MG TABLET. PO PRN (18:00)
[2019-11-18] MEDS ORDERED: CONTRAST GIVEN. MC PRN (18:00)
[2019-11-18] MEDS ORDERED: IOHEXOL 350 MG/ML 100 ML VIAL. IV ONE (18:00)
[2019-11-18] MEDS ORDERED: AZITHROMYCIN 250 MG TABLET. PO ONE (18:00)
--- NOTE | 2019-11-18 18:20 | NUR ---
PT OFF UNIT TO CT.
[2019-11-18] MEDS: ENOXAPARIN 40 MG/0.4 ML SYRINGE. SQ SCH (19:02)
--- NOTE | 2019-11-18 19:46 | RAD ---
EXAM: CT Pulmonary Angiogram INDICATION: Reason: soa + d dimer / Spl. Instructions: / History: TECHNIQUE: Multi-detector row images were acquired from the thoracic inlet through the upper abdomen with the use of IV contrast. Sagittal and coronal images were acquired from the transaxial data. MIP images of the pulmonary arteries were obtained. All CT scans performed at this facility utilize dose optimization techniques as appropriate to the exam, including the following: Automated exposure control and adjustment of the mA and/or KV according to patient size (this includes techniques or standardized protocols for targeted exams where dose is indication/reason for exam). IV CONTRAST: Administered COMPARISON: Chest x-ray from earlier the same day. FINDINGS: PULMONARY ARTERIES: No pulmonary emboli are identified. CARDIOVASCULAR: Unremarkable Aorta is normal caliber. MEDIASTINUM & CELIO: No adenopathy or masses. LUNGS: Multifocal peripheral predominant patchy groundglass opacities are present bilaterally. PLEURAL SPACE: No pleural effusions or pneumothorax. OSSEOUS & SOFT TISSUE: Unremarkable ABDOMEN: The visualized portions of the upper abdomen are unremarkable. IMPRESSION: 1. No pulmonary emboli. 2. Multifocal patchy groundglass opacities in a peripheral predominant distribution, suspicious for atypical pneumonia. Electronically signed by: Janeen Flores MD (11/18/2019 7:43 PM) [facility] [place]
[2019-11-18 20:25] VITALS: BP 111/61
[2019-11-18] MEDS: IV NORMAL SALINE 1,000ML 1,000 ML IV SCH (21:00)
[2019-11-18] MEDS ORDERED: DEXAMETHASONE 4 MG TABLET PO ONE (21:00)
[2019-11-18 22:00] VITALS: BP 117/60
[2019-11-19] MEDS: IV NORMAL SALINE 1,000ML 1,000 ML IV SCH ×4 (01:10→15:32)
[2019-11-19 05:56] VITALS: BP 115/75
--- NOTE | 2019-11-19 06:52 | EKG ---
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
[2019-11-19] MEDS: NICOTINE 21MG PATCH. TD SCH (09:00)
[2019-11-19 09:19] LABS: BASO % 1 % (0-3); EOS % 0 % (0-3); HEMATOCRIT 36.9 % (36.0-47.0); HEMOGLOBIN 11.5 g/dL (12.0-15.5); LYMPH # 0.5 x10^3/uL (1.0-4.8); LYMPH % 19 % (24-48); MEAN CORPUSCULAR HEMOGLOBIN 22 pg (25-35); MEAN CORPUSCULAR HGB CONC 31 g/dL (31-37); MEAN CORPUSCULAR VOLUME 71 fL (79-100); MONO # 0.1 x10^3/uL (0.0-1.1); MONO % 5 % (0-9); NEUT # 1.8 x10^3uL (1.8-7.7); NEUT % 75 % (31-73); PLATELET COUNT 203 x10^3/uL (140-400); RED BLOOD COUNT 5.21 x10^6/uL (3.50-5.40); RED CELL DISTRIBUTION WIDTH 15.9 % (11.5-14.5); WHITE BLOOD COUNT 2.4 x10^3/uL (4.0-11.0)
[2019-11-19 09:25] LABS: CALCIUM 8.4 mg/dL (8.5-10.1); CREATININE 0.8 mg/dL (0.6-1.0); GFR 78.3; POTASSIUM 3.6 mmol/L (3.5-5.1)
[2019-11-19 09:44] LABS: BACTERIA,URINE FEW /HPF (0-FEW); BILIRUBIN,URINE NEG (NEG); CLARITY,URINE HAZY; COLOR,URINE YELLOW; GLUCOSE,URINE 100 mg/dL (NEG); NITRITE,URINE NEG (NEG)
[2019-11-19 09:45] LABS: SQUAMOUS EPITHELIAL CELL,UR MANY /LPF
[2019-11-19] MEDS: AZITHROMYCIN 250 MG TABLET. PO SCH (10:01)
[2019-11-19] MEDS: ASPIRIN CHEWABLE 81 MG TABLET. PO SCH (10:01)
[2019-11-19 10:09] VITALS: BP 125/64
[2019-11-19] MEDS: ALBUTEROL SULFATE 8GM INHALER. INH PRN (10:39)
[2019-11-19 10:44] LABS: % ATYL 2 % (0-0); % LYMPHS 17 % (24-48); % MONOS 6 % (0-10); % SEGS 75 % (35-66)
[2019-11-19 10:45] LABS: OVALOCYTES PRESENT; PLT ESTIMATE ADEQUATE (ADEQUATE)
[2019-11-19 10:46] LABS: ANISOCYTOSIS SLIGHT; HYPOCHROMIA SLIGHT; MICROCYTOSIS SLIGHT
[2019-11-19 14:30] VITALS: BP 144/81
[2019-11-19] MEDS: ENOXAPARIN 40 MG/0.4 ML SYRINGE. SQ SCH (17:34)
--- NOTE | 2019-11-19 18:52 | HP ---
ADMIT DATE: 11/18/2019 HISTORY OF PRESENT ILLNESS: A 44-year-old female who has been sick here for the last week. 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 She has been treated as an outpatient; seen in the Emergency Room, but became progressively worse with shortness of breath and marked dyspnea with minimal exertion. She had been on Levaquin at home, although as noted, the patient became increasingly more dyspneic with minimal exertion, extremely weak with inability to even sit up in bed without collapsing. The patient was also becoming markedly dehydrated. The patient was admitted for IV antibiotic therapy for COVID-19 as well as other medications associated with a possible atypical pneumonia, probably secondary to the COVID-19 situation. PAST MEDICAL HISTORY: Includes that of coronary artery disease, asthma, tubal ligation and anemia. FAMILY HISTORY: Positive for diabetes, hypertension, coronary artery disease. ALLERGIES: No known allergies. HOME MEDICATIONS: Included that of albuterol, Levaquin 500 mg daily, nicotine patch. SOCIAL HISTORY: The patient has about a 10-15 year history of smoking, trying to quit smoking. The patient also denies alcohol or drug use. Lives at home. The patient is full code. REVIEW OF SYSTEMS: Outside of generalized weakness and generalized achiness, the patient denies chest pain; does have shortness of breath with minimal exertion, headache. No visual changes, no nausea, vomiting, melena, hematochezia, or hematemesis otherwise. PHYSICAL EXAMINATION: GENERAL: This is a very pleasant female looking extremely weak and tired. VITAL SIGNS: Blood pressure 123/77, respiratory rate 20, pulse 70, afebrile, 98% oxygen saturation. HEENT: The patient's head was atraumatic, normocephalic. Eyes: PERRLA without jaundice. The mouth and throat were normal. NECK: Supple. LUNGS: Diminished throughout, particularly in the bases. Some crackles. CARDIOVASCULAR: Regular sinus rhythm. ABDOMEN: Protuberant, soft, nontender. EXTREMITIES: No clubbing, cyanosis, nor edema. NEUROLOGIC: The patient is alert and oriented, but extremely weak even to talk. She had problems with some of her speech being dyspneic with talking. LABORATORY DATA: The patient's white count 6, hemoglobin 12 ____. The patient has some atypical lymphs, bands were negative. Chemistries: Lactic acid stable. Potassium slightly low at 3.3, put on electrolyte replacement. Otherwise, BUN and creatinine of 11 and 0.8, GFR is 78. Blood sugar is vacillating. She is on Decadron. IMPRESSION: COVID-19, acute respiratory distress secondary to the COVID, dehydration, leukorrhea, anemia of chronic disease, elevated D-dimer. CTA negative except for these scattered ground glass infiltrates in the periphery consistent with probable pneumonitis or that of a pneumonic process, multifocal areas. PLAN: The patient to continue on IV antibiotic therapy including azithromycin orally and Rocephin and continue to monitor carefully for any changes. LURDES ARREAGA MD DR: [email or web address] JOB#: [id number] / [id number]
[2019-11-19 20:13] VITALS: BP 138/84
[2019-11-19] MEDS: LACTOBACILLUS RHAMNOSUS GG 1 CAPSULE. PO SCH (21:24)
[2019-11-19] MEDS: ACETAMINOPHEN 325 MG TABLET PO PRN (21:24)
[2019-11-19] MEDS: DEXAMETHASONE 4 MG TABLET PO SCH (21:24)
[2019-11-19 23:08] VITALS: BP 136/83
[2019-11-20] MEDS: IV NORMAL SALINE 1,000ML 1,000 ML IV SCH (03:50)
[2019-11-20 04:46] VITALS: BP 130/69
--- NOTE | 2019-11-20 08:55 | NUR ---
IP: patient known positive COVID-19, requires contact and airborne precautions.
[2019-11-20] MEDS: NICOTINE 21MG PATCH. TD SCH (08:56)
[2019-11-20] MEDS: LACTOBACILLUS RHAMNOSUS GG 1 CAPSULE. PO SCH (08:56)
[2019-11-20] MEDS: DEXAMETHASONE 4 MG TABLET PO SCH (08:56)
[2019-11-20] MEDS: AZITHROMYCIN 250 MG TABLET. PO SCH (08:57)
[2019-11-20] MEDS: ALBUTEROL SULFATE 8GM INHALER. INH PRN (08:57)
[2019-11-20] MEDS: ASPIRIN CHEWABLE 81 MG TABLET. PO SCH (08:57)
[2019-11-20] MEDS ORDERED: LACT1CAP19 PO (11:21)
[2019-11-20] MEDS ORDERED: ACET325T9 PO (11:21)
[2019-11-20] MEDS ORDERED: DEXA4TAB63 PO (11:21)
[2019-11-20] MEDS ORDERED: AZIT250T6 PO (11:21)
[2019-11-20] MEDS ORDERED: ZOLP5TAB PO (11:21)
[2019-11-20] MEDS ORDERED: ALBU2.5V8 IH (11:23)
[2019-11-20 11:24] VITALS: BP 128/70
--- NOTE | 2019-11-20 13:42 | NUR ---
NSG NOTE; DISCHARGE VERBAL AND WRITTEN DISCHARGE INSTRUCTIONS, INCLUDING COVID 19, GIVEN TO PT WITH VERBAL UNDERSTANDING. DISCHARGED TO HOME AT 1210 VIA W/C ACCOMP BY FAMILY MEMBER
== END 2019-11-20 12:10 | disposition home or self-care (01) | DRG 177 ==
LOC: ER 10:03 → 1 SOUTH 12:15
PROVIDERS: ADMIT Family Medicine; ATTEND Family Medicine
DX: U07.1 COVID-19 (principal); J12.89 Other viral pneumonia; Z98.51 Tubal ligation status; F17.210 Nicotine dependence, cigarettes, uncomplicated; J45.909 Unspecified asthma, uncomplicated; I25.10 Atherosclerotic heart disease of native coronary artery without angina pectoris; Z83.3 Family history of diabetes mellitus; Z82.49 Family history of ischemic heart disease and other diseases of the circulatory system; D63.8 Anemia in other chronic diseases classified elsewhere; E86.0 Dehydration; N89.8 Other specified noninflammatory disorders of vagina
CPT/HCPCS: 36415; 71045; 71275; 80048; 80053; 81001; 81025; 82550; 83605; 83615; 83735; 83880; 84484; 85007; 85025; 85379; 86140; 87086; 93005; J0456; J0696; J1650; J7613; J8540; Q9967; 99285-25; J7030